=== PATIENT | male | born 1950 | race Caucasian/White ===

== ENCOUNTER 2017-10-05 12:04 | Day surgery (SDC) | payer OTHER ==
[~2017-10-05 12:04] MED LIST: CEFAZOLIN 2 GM/50 ML (PMX) 50 ML IVPB; SOD CHLORIDE 0.9% 1,000 ML IV
[2017-10-05 13:17] LABS: ADD MAN DIFF? NO
[2017-10-05 13:19] LABS: BASOPHIL # 0.1 10^3/ul (0.0-0.1); BASOPHILS % 0.5 % (0.0-2.0); EOSINOPHILS # 0.1 10^3/ul (0.0-0.5); EOSINOPHILS % 1.4 % (0.0-7.0); HEMATOCRIT 40.1 % (42.0-52.0); HEMOGLOBIN 13.6 g/dl (14.0-18.0); LYMPHOCYTES # 2.3 10^3/ul (0.8-2.9); LYMPHOCYTES % 24.5 % (15.0-51.0); MEAN CORPUSCULAR HEMOGLOBIN 33.7 pg (29.0-33.0); MEAN CORPUSCULAR HGB CONC 33.9 g/dl (32.0-37.0); MEAN CORPUSCULAR VOLUME 99.5 fl (82.0-101.0); MEAN PLATELET VOLUME 10.6 fl (7.4-10.4); MONOCYTE # 0.7 10^3/ul (0.3-0.9); MONOCYTES % 7.5 % (0.0-11.0); NEUTROPHIL # 6.2 10^3/ul (1.6-7.5); NEUTROPHILS % 65.8 % (39.0-77.0); PLATELET COUNT 241 10^3/UL (140-415); RED BLOOD COUNT 4.03 10^6/ul (4.70-6.10); RED CELL DISTRIBUTION WIDTH 11.9 % (11.5-14.5)
[2017-10-05 13:19] LABS: WHITE BLOOD COUNT 9.4 10^3/ul (4.8-10.8)
[2017-10-05 13:43] LABS: ALANINE AMINOTRANSFERASE 32 IU/L (13-69); ALBUMIN 4.1 g/dl (3.3-4.9); ALBUMIN/GLOBULIN RATIO 1.46; ALKALINE PHOSPHATASE 72 IU/L (42-121); ANION GAP 13 (8-16); ASPARTATE AMINO TRANSFERASE 22 IU/L (15-46); BILIRUBIN,INDIRECT 0.8 mg/dl (0-1.1); BILIRUBIN,TOTAL 0.8 mg/dl (0.2-1.3); CARBON DIOXIDE 28 mmol/L (21-31); CHLORIDE 103 mmol/L (97-110); GLUCOSE 100 mg/dl (70-220); TOTAL PROTEIN 6.9 g/dl (6.1-8.1)
[2017-10-05 13:46] LABS: BLOOD UREA NITROGEN 18 mg/dl (7-20); CALCIUM 9.3 mg/dl (8.4-10.2); CREATININE 0.96 mg/dl (0.61-1.24); POTASSIUM 4.4 mmol/L (3.5-5.1); SODIUM 140 mmol/L (135-144)
[2017-10-05 13:52] LABS: INR 0.95; PROTIME 12.8 Sec (11.9-14.9)
[2017-10-05 13:53] LABS: PARTIAL THROMBOPLASTIN TIME 26.4 Sec (25.0-35.0)
[2017-10-05] MEDS ORDERED: SUCCINYLCHOLINE CHLORIDE 100 MG/5 ML SYG IV (15:50)
[2017-10-05] MEDS ORDERED: LIDOCAINE 2% (SDV) 5 ML INJ (15:50)
[2017-10-05] MEDS ORDERED: PROPOFOL 20 ML (15:50)
[2017-10-05] MEDS ORDERED: ROCURONIUM 50 MG INJ (15:50)
[2017-10-05] MEDS ORDERED: GLYCOPYRROLATE 0.4 MG INJ ×2 (15:50→16:14)
[2017-10-05] MEDS ORDERED: MEPERIDINE 100 MG INJ (15:50)
[2017-10-05] MEDS ORDERED: NEOSTIGMINE 3 MG/3 ML SYRINGE ×2 (15:50→16:14)
[2017-10-05] MEDS ORDERED: POLYMYXIN/BACITRACIN 1L IRRIG (15:51)
[2017-10-05] MEDS ORDERED: CEFAZOLIN 1 GM INJ (16:14)
[2017-10-05] MEDS ORDERED: ONDANSETRON 4 MG INJ (16:15)
[2017-10-05] MEDS ORDERED: EPHEDrine SULFATE 50 MG/5 ML SYG (16:17)
[2017-10-05] MEDS ORDERED: ATROPINE 1 MG/10 ML SYRINGE (16:18)
[2017-10-05] MEDS: BUPIVACAINE 0.5% (SDV) 30 ML INJ (16:45)
[2017-10-05] MEDS ORDERED: DIPHENHYDRAMINE 50 MG INJ IV (17:30)
[2017-10-05] MEDS ORDERED: LABETALOL HCL 20MG INJ IV (17:30)
[2017-10-05] MEDS ORDERED: HYDROmorphONE (0.2 MG/ML) 10ML SYG IV ×3 (17:30)
[2017-10-05] MEDS ORDERED: MEPERIDINE 25 MG INJ IV (17:30)
[2017-10-05] MEDS ORDERED: MIDAZOLAM 1 MG/ML 2 ML INJ IV (17:30)
[2017-10-05] MEDS ORDERED: hydrALAzine 20 MG INJ IV (17:30)
[2017-10-05] MEDS ORDERED: METOCLOPRAMIDE 10 MG INJ IV (17:30)
[2017-10-05] MEDS ORDERED: EPHEDrine SULFATE 50 MG/5 ML SYG IV (17:30)
[2017-10-05] MEDS ORDERED: ONDANSETRON 4 MG INJ IV (17:30)
[2017-10-05] MEDS ORDERED: FENTAnyl 50 MCG/ML VIAL IV ×3 (17:30)
[2017-10-05] MEDS ORDERED: OXYCODONE/ACETAMINOPHEN (5/325) TAB PO ×2 (17:30)
[2017-10-05] MEDS: HYDROCODONE/APAP (5/325) TAB PO (18:29)
== END 2017-10-05 18:50 | disposition home or self-care (01) ==
LOC: SDS 12:04
DX: K40.90 Unilateral inguinal hernia, without obstruction or gangrene, not specified as recurrent (principal)
CPT/HCPCS: 49505; 71045; 80053; 85025; 85610; 85730; 93005